=== PATIENT | female | born 2000 | race Two or more races ===

== ENCOUNTER 2025-03-03 01:38 | Emergency (ER) | payer MEDICAID, SELFPAY ==
[2025-03-03 02:17] LABS: HCG Qualitative,Urine Negative
--- NOTE | 2025-03-03 02:18 | EDNOTE_ITS ---
ED Psych RME/HPI General Chief Complaint: Psychiatric Symptoms Stated Complaint: BEHAVIORAL Time Seen by Provider: 03/03/25 01:42 Arrival date/time: 03/03/25 01:38 RME / HPI RME / HPI Narrative: Dr. Guajardo?s Main ED Evaluation: 24yo female with a history of schizophrenia, bipolar disorder BIBA from home presents to the ED for a voluntary psychiatric evaluation. Patient endorses having SI, reporting she does not feel like myself and is depressed. Patient denies having any active plan. She denies any HI or hallucinations. Patient states she is taking her psychiatric medications. Related Data Home Medications ?Medication ?Instructions ?Recorded ?Confirmed PNV#14-iron [id number] 1 cap PO QDAY 07/14/24 27 mg iron-1 mg-300 mg-50 mg capsule Allergies Allergy/AdvReac Type Severity Reaction Status Date / Time No Known Allergies Allergy Unknown Verified 07/14/24 11:04 Review of Systems Review of Systems Systems Reviewed: All systems reviewed, normal except as documented Past Medical History Past Medical History NEUROLOGIC: Negative Neurological Disorders or Seizures CARDIAC: Negative Cardiac Disorders or Congestive Heart Failure RESPIRATORY: Negative Chronic Obstructive Pulmonary Disease (COPD) or Asthma GASTROINTESTINAL: Negative Gastrointestinal Disorders GENITOURINARY: Negative Genitourinary Disorders or Renal Disease MUSCULOSKELETAL: Negative Musculoskeletal Disorders ENDOCRINE: Negative Endocrine Disorders, Diabetes Mellitus Type 1 or Diabetes Mellitus Type 2 HEMATOLOGIC: Positive Anemia; Negative Blood Disorders PSYCHO/SOCIAL: Positive Recreational Drug Use (thc), Depression and Anxiety; Negative Depression or Post Traumatic Stress Disorder OTHER HISTORY: Negative Autoimmune Disease, Falls, Blood Transfusions, Blood Transfusion Reaction or Anesthesia Reactions Family History FAMILY HISTORY: Positive Family Cancer; Negative Family Psychiatric Problems, Family Respiratory Disorders, Family Car diac Disorders, Family Gastrointestinal Problems, Family Surgery or Family Anesthesia Reaction Surgical History SURGICAL: Positive Section (2016) Social History SMOKING STATUS: Never smoker SUBSTANCE USE: does not use ED Exam Narrative Physical exam: GENERAL APPEARANCE: alert and oriented x 4, well-developed, well-nourished, no acute distress VITALS: All vitals were reviewed and the pulse ox is % on room air, which is normal according to my interpretation. HEENT: Normocephalic, atraumatic; pupils equal, round, reactive to light; EOMI; mucous membranes pink, moist; oropharynx clear NECK: Supple LUNGS: CTABL; no wheezes, no rales, no rhonchi HEART: Regular rate, regular rhythm; normal S1, S2; no murmurs ABDOMEN: non distended; normal BS; soft, no tenderness, no guarding, no rebound; no masses, no organomegaly, no hernia BACK: no CVA tenderness EXTREMITIES: atraumatic; no edema NEUROLOGIC: awake; alert and oriented x4; cranial nerves II-XII grossly intact; no focal sensory or motor deficits PSYCHIATRIC: depressed mood and affect SKIN: warm, dry, normal color; no rashes Course Quality Measures none Orders Category Date Time Status 1799 Psychiatric Hold NOW Care 03/03/25 06:15 Ordered Acetaminophen Stat Lab 03/03/25 02:24 Completed Alcohol, Blood Medical Stat Lab 03/03/25 02:24 Completed Alcohol, Urine Stat Lab 03/03/25 01:52 Completed Basic Metabolic Panel Stat Lab 03/03/25 02:24 Completed CBC Stat Lab 03/03/25 02:24 Completed Drug Screen,Urine Stat Lab 03/03/25 01:52 Completed HCG Qualitative,Urine Stat Lab 03/03/25 01:52 Completed Salicylate Stat Lab 03/03/25 02:24 Completed LORazepam [Ativan] Med 03/03/25 02:21 Discontinued 1 mg PO X1 ONE Vital Signs Vital signs: Vital Signs Temperature 98 F 03/03/25 04:00 Pulse Rate 105 H 03/03/25 04:00 Respiratory Rate 18 03/03/25 04:00 Blood Pressure 118/79 03/03/25 04:00 Pulse Oximetry (%) 96 03/03/25 04:00 Oxygen Delivery Method Room Air 03/03/25 04:00 Psych MDM Narrative MDM Narrative:: Scribe Attestation: 03/03/25 - Manda Gracia am scribing for and in the presence of Dr. Guajardo. 0241: Sister is now at bedside and states the patient used to be on olanzapine and it worked really well until she got last year. In January, she started going into a manic phase. On 02/08, patient was seen at [facility] for a major manic episode and was admitted to inpatient psych in [facility]. Patient was inpatient there up until 3 days ago. Patient is on [place] among other medications. Patient is medically clear for crisis evaluation. The patient was placed in ED observation care at 03/03/25 at 0300 hours. The patient was placed in ED observation care because of pending psychiatric evaluation. The patients past medical history, social history, and family history were reviewed. 0600: Care signed out to Dr. Zarate (emergency physician). Past medical, surgical, social and family history reviewed. Vitals and home medications reviewed. Results and treatment plan discussed. They will assume the care of the patient at this time and will follow the patient, pending crisis evaluation. At this time, observation has ended. 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.) Clinical information provided by:: patient Social determinants that could affect healthcare access:: mental health Patient has the following chronic illnesses:: schizophrenia, bipolar disorder How is presenting disease/condition affected by chronic disease/condition?: caused by Evaluation data The following diagnostics were reviewed and interpreted by me:: lab results Lab and/or radiology exams considered but not ordered:: none Interpretation Summary: CBC is normal, CMP is normal, HCG is negative, Salicylates are normal, Acetaminophen is negative, UDS is positive for marijuana, Blood Alcohol is negative, according to my interpretation. Medications / Prescriptions Medications or Prescriptions considered but not ordered:: none Medication administrations:: Medication Administration History Discontinued Medications Lorazepam (Lorazepam 0.5 Mg Tablet) 1 mg PO X1 ONE Stop: 03/03/25 02:22 Last Admin: 03/03/25 03:46 Dose: 1 mg Documented By: EE see above Consultations Consultation(s) initiated? (list below): No Diagnosis Psych Differential Diagnosis: acute psychosis, chronic schizophrenia, suicidal ideation, bipolar disorder and depression Most likely diagnosis given after review of the tests above:: see clinical impression below Admission Indicated Admission indicated?: not indicated Admission Request Was there a request for admission?: No Disposition Plan Disposition Plan: other (specify) (Signed out to Dr. Zarate at 0600 pending crisis evaluation.) Discharge Plan Prescriptions/Referrals Prescriptions/Med Rec: No Action PNV #[id number] 27 mg iron-1 mg -300 mg-50 mg Capsule 1 cap PO QDAY Referrals: No Primary/Family,Physician [Primary Care Provider] - In 1 week Problem List Clinical Impression: Suicidal ideation Patient/Caregiver Discharge Instructions Print Language: Setswana
[2025-03-03 02:26] LABS: Alcohol, Urine Negative (Negative); Amphetamine/Methamp Scrn,U Negative (Negative); Barbiturate Screen,Urine Negative (Negative); Benzodiazepines Screen,Urine Negative (Negative); Benzoylecgonine Screen, Ur Negative (Negative); Fentanyl Screen,Urine Negative (Negative); Opiate Screen,Urine Negative (Negative); THC Screen,Urine Positive (Negative)
[2025-03-03 02:32] LABS: Basophils % (Auto) 0 % (0-2.5); Eosinophils # (Auto) 0.1 Thou/mm3 (0.0-0.5); Eosinophils % (Auto) 1 % (0-10); Hemoglobin 10.8 g/dL (12.0-16.0); Immature Granulocytes % (Auto) 0 % (0-0); Immature Granulocytes Auto 0.02 Thou/mm3 (0.00-0.00); Lymphocytes # (Auto) 1.3 Thou/mm3 (1.0-4.8); Lymphocytes % (Auto) 16 % (10-50); Mean Corpuscular HGB Conc 32.7 g/dl (31.0-37.0); Mean Corpuscular Hemoglobin 26.7 pg (25.0-35.0); Mean Corpuscular Volume 82 fL (80-100); Monocytes # (Auto) 0.8 Thou/mm3 (0.0-0.8); Monocytes % (Auto) 10 % (0-12); Neutrophils # (Auto) 5.6 Thou/mm3 (1.8-7.7); Neutrophils % (Auto) 72 % (37-80); Nucleated Red Blood Cell % 0 /100 WBC (0); Platelet Count 318 Thou/mm3 (140-440); RDW Standard Deviation 45.6 fL (36.4-46.3); Red Blood Count 4.05 Miln/mm3 (4.00-5.20); White Blood Count 7.7 Thou/mm3 (3.6-11.0)
[2025-03-03 02:53] LABS: Acetaminophen < 2.0 mcg/mL (10.0-20.0); Alcohol, Blood Medical < 3.0 mg/dL (0-10.0); Anion Gap 8 (7-16); BUN/Creatinine Ratio 13 Ratio (12-20); Blood Urea Nitrogen 9 mg/dL (9-23); Calcium 9.6 mg/dL (8.3-10.6); Carbon Dioxide 27.5 mMol/L (20.0-31.0); Chloride 105 mMol/L (98-107); Creatinine (Component) 0.7 mg/dL (0.6-1.3); Glucose 109 mg/dL (74-106); Osmolality,Calculated 279 (275-295); Salicylate < 3.0 mg/dL; Sodium 140 mMol/L (136-145); eGFR > 60 See Note
--- NOTE | 2025-03-03 03:00 | PC.NURSE ---
IN TO ASSESS PT AT THIS TIME. PT BIB EMS FOR MENTAL EVAL FOR A VOLUNTARY HOLD. PT HAS HX OF BIPOLAR AND STATES SHE IS INDORSING SUICIDAL IDEATION. PT STATES TODAY SHE BECAME UPSET AFTER A DISAGREEMENT WITH FAMILY. PT BEGAN TO ENDORSE SELF HARM BY SCRATCHING HERSELF ON THE LEFT FOREARM. PT STATES IN THE PAST WHEN SHE BECOMES UPSET AND HAS ONE OF HER EPISODES , SHE ENDORSE SELF HARM A COPING MECHANISM. PT DENIES HI, VISUAL OR AUDITORY HALLUCINATIONS. SITTER AT BEDSIDE. PLAN OF CARE ONGOING AT THIS TIME.
[2025-03-03] MEDS: LORazepam 0.5 MG TABLET 1 MG PO (03:46)
[2025-03-03 03:53] VITALS: PULSE 69; RESP 18; O2SAT 98; BMI 34.3
[2025-03-03 04:00] VITALS: BP 118/79; PULSE 105; RESP 18; TEMP 36.6; O2SAT 96
--- NOTE | 2025-03-03 06:18 | EDNOTE_ITS ---
Emergency Room Addendum Addendum Narrative: 0600: Care assumed from Dr. Guajardo (emergency physician). Past medical, surgical, social and family history reviewed. Vitals and home medications reviewed. Results and treatment plan discussed. I will assume the care of the patient at this time and will follow the patient, pending mental health evaluation. 0950: Social worked had met with and evaluated patient in the ER and is placing on a 5150 hold, at this time pending LPS facility placement. Patient has been accepted at [facility]. EMS pick-up scheduled at 1400.
[2025-03-03 08:00] VITALS: BP 120/79; PULSE 89; RESP 16; TEMP 36.8; O2SAT 99
[2025-03-03 09:32] VITALS: BP 100/68; PULSE 97; RESP 16; TEMP 36.7; O2SAT 98
--- NOTE | 2025-03-03 10:59 | PC.SS ---
Addendum entered by Kelsey Aby 03/03/25 13:14: [facility]. [facility] SS informed contacted patient's sister Tamera Sanchez [phone] to inform her of ETA 1500. Tamera placed SS on speaker and present on the call was sibling Lala. Sibling Lala requested hospital address be provided at bedside to their mother, Nancy Madera. SS met with patient and their mother to provide them with address: [address] [address] [place] [address] to [address], . ETA 1500 provided to them. SS informed RN Jairo of new ETA 1500. Addendum entered by Kelsey Aby 03/03/25 12:08: Russell Kempta is expecting patient at 1400. Addendum entered by Kelsey Aby 03/03/25 12:06: Received call from [facility]ax[facility] Rina, she stated they can accept patient to [address] [address] [place] [address] [address] Accepting doctor is Dr. Guzman. Andres Flynn requested to be connected to bedside RN. She was connected to RN Jairo. Addendum entered by Kelsey Aby 03/03/25 11:12: HECTOR Lobato, Dr. Zarate, LORENA Gill, patient's sibling Tamera Sanchez, and patient were informed patient would be placed on 5150 Hold, DTS and GD. Patient is pending LPS placement. Original Note: Patient was BIBA after self-harming and disclosing suicidal ideations (SI) to family. Patient was accompanied by sibling Tamera Sanchez [phone]. Verbal consent was provided by patient to allow this rfp writer to complete evaluation at bedside with sibling Tamera Sanchez present. Information for evaluation was provided by both patient and patient's sibling, Tamera. Patient resides with her spouse Salma Riley and their two children, 8month old, and 8YO. Patient explained she experiences SI daily with thoughts lasting all day for up to 2 weeks. Patient disclosed she is currently experiencing active SI. She denied plan, method or intent. Patient reports self-harming when feeling overwhelmed with emotions. Last night, self-harm was triggered by an argument with her spouse Beka Riley. Patient displayed left arm with a cluster of scratches. She explained she scratched self with fingernails and denied self-harming with intention to killing herself. Patient denied homicidal ideations, auditory hallucinations, and visual hallucinations. Patient asked if her license was going to be suspended. [employer] Sales Beauty Advisor probed patient to further explain question. 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 [employer] Sales Beauty Advisor explained to patient rfp writer does not have the authority or right to revoke/suspend her license. Patient asked rfp writer if she thought it was okay for others to use her WIC card, EBT card, and DL because her spouse currently has them. Patient's sister Tamera engaged patient and reminded patient she had requested her spouse to take benefit cards to purchase formula for their 8-month-old . Patient stated she does not remember things when she has episodes. ?Patient denied firearms in the home. Patient disclosed using marijuana 2-3weeks ago. Patient denies being connected to a mental provider. Patient requested cellphone to pay urgent bill and search for important stuff. Patient was redirected to complete evaluation and charge nurse would be consulted for cellphone access. Patient's sister Tamera Sanchez reported patient is not allowed to drive due to her taking psychotropic medications and family fears for patient's safety. Tamera stated patient is not medication compliant. Tamera stated patient has manic episodes for days and today being a recent episode. Tamera explained during this episode, patient became verbally aggressive towards family, has been refusing to sleep, and has to be prompted to sleep. Tamera reported patient recently started urinating herself and has to be prompted to use the bathroom. Tamera also stated patient needs supervision at all times because she wanders out of the house and family has to search for her. Tamera reported patient self-harmed by cutting her own hair off and burning her right arm with a hair curling iron. Tamera reported patient is experiencing paranoia. She reported patient has contacted [place] [employer] multiple times this week for help. Tamera stated patient was transferred to psychiatric placement to [facility] on?02/18/25 and was discharged 02/27/25. Tamera states patient continues to ask for help for her mental health. Foot Miter Operator SR was consulted for case consultation purposes. Ptatient was assessed as meeting criteria for an involuntary hold, 5150 DTS, GD. Patient's CSSRS score was high, 15/25. Patient is unable to safety plan.
[2025-03-03 11:54] VITALS: BP 128/86; PULSE 92; RESP 16; TEMP 37.1; O2SAT 98
--- NOTE | 2025-03-03 12:09 | PC.NURSE ---
SPOKE TO CONNOR AT [facility] TO WHOM I GAVE REPORT TO.
[2025-03-03] MEDS: risperiDONE 1 MG TABLET 2 MG PO (12:13)
[2025-03-03 14:30] VITALS: BP 105/71; PULSE 97; RESP 16; TEMP 36.5; O2SAT 99
[2025-03-03] MEDS: hydrOXYzine HCL 25 MG TABLET PO (15:11)
== END 2025-03-03 15:15 ==
PROVIDERS: Emergency Provider Emergency Medicine
DX: Z00.8 Encounter for other general examination (principal); R45.851 Suicidal ideations; F20.9 Schizophrenia, unspecified; Z75.1 Person awaiting admission to adequate facility elsewhere
CPT/HCPCS: 36415; 80048; 80307; 80320; 80329; 81025; 85025; 90839; 96127; 99285; A9270; G0480